=== PATIENT | male | born 2000 | race Asian ===

== ENCOUNTER 2021-02-08 11:04 | Observation (INO) ==
[2021-02-08 12:13] LABS: Basophils # (auto) 0.01 K/uL (0-0.2); Basophils % (auto) 0.1 %; Eosinophils # (auto) 0.02 K/uL (0-0.5); Eosinophils % (auto) 0.2 %; Hematocrit (blood only) 45.6 % (42-52); Immature Granulocytes # (auto) 0.02 K/uL (0.00-0.02); Immature Granulocytes % (auto) 0.2 %; Lymphocytes # (auto) 1.55 K/uL (1.2-3.4); Lymphocytes % (auto) 13.9 %; Mean Corpuscular Hemoglobin 30.2 pg (25-34); Mean Corpuscular Hgb Conc 35.1 g/dL (32-36); Mean Corpuscular Volume 86.2 fL (80-100); Mean Platelet Volume 10.7 fL (7.4-10.4); Monocytes # (auto) 0.59 K/uL (0.11-0.59); Monocytes % (auto) 5.3 %; Neutrophils # (auto) 8.97 K/uL (1.4-6.5); Neutrophils % (auto) 80.3 %; Platelet Count 197 K/uL (130-400); RDW Coefficient of Variation 12.3 % (11.5-14.5); RDW Standard Deviation 38.8 fL (36.4-46.3); Red Blood Count 5.29 M/uL (4.7-6.1); White Blood Count 11.16 K/uL (4.8-10.8)
[2021-02-08 12:23] LABS: INR 1.1 (0.9-1.1); Partial Thromboplastin Ratio 1.3; Partial Thromboplastin Time 33.5 Seconds (21.0-31.0); Prothrombin Time 11.2 Seconds (9.0-12.0)
[2021-02-08 12:33] LABS: BUN Creatinine Ratio 13.6 (10-20); Calcium 9.2 mg/dl (8.5-10.1); Creatinine Clr Calc Pharmacy 133.8 ml/min; Est GFR (African American) 132.1 ml/min; Potassium 4.1 mmol/L (3.5-5.1)
--- NOTE | 2021-02-08 13:12 | Emergency Department Note ---
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 Patient reports has been having rectal pain for the past 6 months. He reports he felt a bump by his rectum 6 months ago and is gotten progressively bigger and more painful. He states he went to [facility] and they referred him here because they thought he had a perirectal abscess. Patient denies any fevers. Denies any drainage. He denies any anal sex. Home Medications Medication Instructions Recorded Confirmed Type ascorbic acid (vitamin C) 1,000 mg 1,000 mg PO HS 02/08/21 02/08/21 History tablet (Vitamin C) Allergies Allergy/AdvReac Type Severity Reaction Status Date / Time No Known Allergies Allergy Unverified 02/08/21 13:33 Past Med/Surg History Medical History No pertinent family history No pertinent past medical history Surgical History No pertinent past surgical history Social History Smoking Status: Never smoker Feels Safe at Home: Yes Review of Systems A total of 10 systems reviewed and were otherwise negative Physical Exam Vital Signs Vital Signs - 24 hr 02/08/21 11:08 02/08/21 15:04 02/08/21 16:32 Temperature 36.7 C Temperature Source Temporal Artery Scan Pulse Rate 110 H Pulse Rate [Apical] Pulse Rate [Finger] 106 H Pulse Rhythm [Apical] Respiratory Rate 18 18 18 Respiratory Effort / Characteristics Respiratory Depth Normal Respiratory Pattern Blood Pressure 112/64 Blood Pressure [Left Arm] 103/54 L Blood Pressure Mean 80 Blood Pressure Mean [Left Arm] 70 Blood Pressure Position [Left Arm] Pulse Oximetry 97 98 Oxygen Delivery Method Room Air Room Air Oxygen Flow Rate Sepsis Recent Fever Within 48 Hours No Sepsis New/Unexplained Change in Mental Status No Sepsis Action Taken by Nursing No Action Required 02/08/21 17:22 02/08/21 17:23 02/08/21 18:21 Temperature 37.3 C 36.4 C L Temperature Source Oral Temporal Artery Scan Pulse Rate Pulse Rate [Apical] 84 Pulse Rate [Finger] 106 H Pulse Rhythm [Apical] Regular Respiratory Rate 18 16 Respiratory Effort / Characteristics Non-Labored Spontaneous Non-Labored Respiratory Depth Normal Normal Respiratory Pattern Regular Regular Blood Pressure Blood Pressure [Left Arm] 103/54 L 99/52 L Blood Pressure Mean Blood Pressure Mean [Left Arm] 70 67 Blood Pressure Position [Left Arm] Lying Lying Pulse Oximetry 98 100 Oxygen Delivery Method Room Air Room Air Oxymask Oxygen Flow Rate 6 Sepsis Recent Fever Within 48 Hours Sepsis New/Unexplained Change in Mental Status Sepsis Action Taken by Nursing 02/08/21 18:30 02/08/21 18:40 02/08/21 18:50 Temperature 36.5 C Temperature Source Temporal Artery Scan Pulse Rate Pulse Rate [Apical] 101 H 92 H 89 Pulse Rate [Finger] Pulse Rhythm [Apical] Regular Regular Regular Respiratory Rate 16 16 16 Respiratory Effort / Characteristics Non-Labored Non-Labored Non-Labored Respiratory Depth Normal Normal Normal Respiratory Pattern Regular Regular Regular Blood Pressure Blood Pressure [Left Arm] 116/57 L 124/60 118/58 L Blood Pressure Mean Blood Pressure Mean [Left Arm] 76 81 78 Blood Pressure Position [Left Arm] Lying Lying Lying Pulse Oximetry 100 100 100 Oxygen Delivery Method Oxymask Room Air Room Air Oxygen Flow Rate 6 Sepsis Recent Fever Within 48 Hours Sepsis New/Unexplained Change in Mental Status Sepsis Action Taken by Nursing 02/08/21 19:00 02/08/21 19:10 Temperature Temperature Source Pulse Rate Pulse Rate [Apical] 86 85 Pulse Rate [Finger] Pulse Rhythm [Apical] Regular Regular Respiratory Rate 16 16 Respiratory Effort / Characteristics Non-Labored Non-Labored Respiratory Depth Normal Normal Respiratory Pattern Regular Regular Blood Pressure Blood Pressure [Left Arm] 108/55 L 107/53 L Blood Pressure Mean Blood Pressure Mean [Left Arm] 72 71 Blood Pressure Position [Left Arm] Lying Lying Pulse Oximetry 97 97 Oxygen Delivery Method Room Air Room Air Oxygen Flow Rate Sepsis Recent Fever Within 48 Hours Sepsis New/Unexplained Change in Mental Status Sepsis Action Taken by Nursing Physical Exam GENERAL: He is oriented to person, place, and time. He appears well-developed and well-nourished. He does not appear distressed. HENT: Exam performed. - Head: Normocephalic and atraumatic. - Right Ear: External ear normal. No mastoid tenderness. - Left Ear: External ear normal. No mastoid tenderness. - Mouth/Throat: The oropharynx is clear and moist. No trismus in the jaw. No dental abscesses or uvula swelling. No oropharyngeal exudate or tonsillar abscesses. EYES: Conjunctivae and EOM are normal. Pupils are equal, round, and reactive to light. Right eye exhibits no discharge. Left eye exhibits no discharge. No scleral icterus. NECK: Normal range of motion. Neck supple. No JVD present. No spinous process tenderness present. No carotid bruit present. No rigidity. No tracheal deviation and normal range of motion present. No Brudzinski's sign and no Kernig's sign noted. CV: Normal rate, regular rhythm, normal heart sounds and intact distal pulses. There is no peripheral edema. Palpable radial pulses bue. PULM/CHEST: Effort normal and breath sounds normal. No respiratory distress. No stridor. He has no wheezes. He has no rales. - Chest Wall: He exhibits no tenderness. ABD: The abdomen is soft. Bowel sounds are normal. He has no distension. No mass is present. There is no tenderness. There is no rebound, no guarding, no Lancaster's sign and no tenderness at McBurney's point. Rovsig negative. Rectal: No obvious perirectal or perianal abscess. No hemorrhoids. MUSC/SKEL: Normal range of motion. There is no peripheral edema, tenderness or deformity. LYMPH: No cervical adenopathy. NEURO: He is alert and oriented to person, place, and time. He has normal strength. No cranial nerve deficit or sensory deficit. Coordination and gait normal. GCS eye subscore is 4. GCS verbal subscore is 5. GCS motor subscore is 6. Cerebellar tests wnl. SKIN: Skin is warm and dry. He is not diaphoretic. PSYCH: He has a normal mood and affect. Behavior is normal. Judgment and thought content normal. Course Course 1125: The patient was evaluated in room C2. A complete history and physical exam was performed Cardiac monitoring: An order was placed for continuous cardiac monitoring. The monitor shows a rate of 100 with sinus rhythm 1430: Vital signs stable. Labs within normal limits. CT imaging does show perirectal abscess. Reviewed the scans with Dr. Flores general surgery and Irma renee PA-C and they recommend admission so they could do drainage in the OR. Administered Medications Discontinued Medications Cefazolin Sodium (Cefazolin 2,000 Mg/15 Ml Iv Push) Confirm Administered Dose 2,000 mg IV .STK-MED ONE Stop: 02/08/21 17:38 Last Admin: 02/08/21 17:41 Dose: 2,000 mg Documented by: [id number] Ioversol (Optiray 320 100ml) 97 ml IV ONCE ONE Stop: 02/08/21 14:02 Last Admin: 02/08/21 14:01 Dose: 97 ml Documented by: [id number] Lidocaine/Epinephrine (Lidocaine/Epinephrine 1% 20 Ml Vial) Confirm Administered Dose 20 ml .ROUTE .STK-MED ONE Stop: 02/08/21 17:03 Last Admin: 02/08/21 18:04 Dose: 20 ml Documented by: [id number] Medical Decision Making Laboratory Data Result diagrams: 02/08/21 Unknown 02/08/21 Unknown Lab Results 02/08/21 02/08/21 02/08/21 Range/Units Unknown Unknown Unknown WBC 11.16 H (4.8-10.8) K/uL RBC 5.29 (4.7-6.1) M/uL Hgb 16.0 (14.0-18.0) g/dL Hct 45.6 (42-52) % MCV 86.2 (80-100) fL MCH 30.2 (25-34) pg MCHC 35.1 (32-36) g/dL RDW Std Deviation 38.8 (36.4-46.3) fL RDW Coeff of [place] 12.3 (11.5-14.5) % Plt Count 197 (130-400) K/uL MPV 10.7 H (7.4-10.4) fL Immature Gran % (Auto) 0.2 % Neut % (Auto) 80.3 % Lymph % (Auto) 13.9 % [place] % (Auto) 5.3 % Eos % (Auto) 0.2 % Baso % (Auto) 0.1 % Neut # (Auto) 8.97 H (1.4-6.5) K/uL Lymph # (Auto) 1.55 (1.2-3.4) K/uL [place] # (Auto) 0.59 (0.11-0.59) K/uL Eos # (Auto) 0.02 (0-0.5) K/uL Baso # (Auto) 0.01 (0-0.2) K/uL Immature Gran # (Auto) 0.02 (0.00-0.02) K/uL PT 11.2 (9.0-12.0) Seconds INR 1.1 (0.9-1.1) APTT 33.5 H (21.0-31.0) Seconds PTT Ratio 1.3 Sodium 138 (136-145) mmol/L Potassium 4.1 (3.5-5.1) mmol/L Chloride 106 (98-107) mmol/L Carbon Dioxide 27 (21-32) mmol/L Anion Gap 5.0 (3-11) BUN 13 (7-18) mg/dl Creatinine 0.95 (0.6-1.4) mg/dl Est Cr Clr Drug Dosing 133.8 ml/min Est GFR ( Amer) 132.1 ml/min Est GFR (Non-Af Amer) 114.0 ml/min BUN/Creatinine Ratio 13.6 (10-20) Glucose 99 (70-99) mg/dl Calcium 9.2 (8.5-10.1) mg/dl COVID-19 Eval Order SARS-CoV-2 (PCR) (Negative) 02/08/21 02/08/21 Range/Units Unknown Unknown WBC (4.8-10.8) K/uL RBC (4.7-6.1) M/uL Hgb (14.0-18.0) g/dL Hct (42-52) % MCV (80-100) fL MCH (25-34) pg MCHC (32-36) g/dL RDW Std Deviation (36.4-46.3) fL RDW Coeff of [place] (11.5-14.5) % Plt Count (130-400) K/uL MPV (7.4-10.4) fL Immature Gran % (Auto) % Neut % (Auto) % Lymph % (Auto) % [place] % (Auto) % Eos % (Auto) % Baso % (Auto) % Neut # (Auto) (1.4-6.5) K/uL Lymph # (Auto) (1.2-3.4) K/uL [place] # (Auto) (0.11-0.59) K/uL Eos # (Auto) (0-0.5) K/uL Baso # (Auto) (0-0.2) K/uL Immature Gran # (Auto) (0.00-0.02) K/uL PT (9.0-12.0) Seconds INR (0.9-1.1) APTT (21.0-31.0) Seconds PTT Ratio Sodium (136-145) mmol/L Potassium (3.5-5.1) mmol/L Chloride (98-107) mmol/L Carbon Dioxide (21-32) mmol/L Anion Gap (3-11) BUN (7-18) mg/dl Creatinine (0.6-1.4) mg/dl Est Cr Clr Drug Dosing ml/min Est GFR ( Amer) ml/min Est GFR (Non-Af Amer) ml/min BUN/Creatinine Ratio (10-20) Glucose (70-99) mg/dl Calcium (8.5-10.1) mg/dl COVID-19 Eval Order Covid19 at [facility] SARS-CoV-2 (PCR) NEGATIVE (Negative) Imaging Data Radiologist's Impression: Pelvis CT 02/08/21 11:35 CT pelvis w/IV con only HISTORY: Perirectal pain. Perirectal abscess. TECHNIQUE: Multiaxial CT images of the pelvis are performed following the intravenous administration of 97 cc of Optiray 320. COMPARISON STUDY: None. FINDINGS: Best seen on axial image 241 there is a 4.0 x 2.9 cm thick-walled left perirectal abscess with adjacent fat stranding and skin thickening within the left perineum/gluteal soft tissues. This originates from approximately the 2:00 location of the rectum. No evidence for supralevator extension. There is no pelvic free fluid. The bladder is unremarkable. Mild left inguinal lymphadenopathy which is likely reactive. The visualized loops of bowel show no wall thickening or obstruction. Normal appendix. No suspicious lytic or blastic osseous lesions. IMPRESSION: A 4.0 x 2.9 cm left perirectal abscess as described above. ACT 112: Negative or not required by law. Electronically signed by: Derrell Horner M.D. 02/08/2021 2:09 PM MDM Narrative Vital signs stable. Labs within normal limits. CT imaging does show perirectal abscess. Reviewed the scans with Dr. Flores general surgery and Irma renee PA-C and they recommend admission so they could do drainage in the OR. Impression & Plan Perirectal abscess Discharge Plan Visit Data Chief Complaint: Rectal Pain Stated Complaint: NESTOR-RECTAL ABSCESS,RECTAL PAIN,REF BY DOC ED Provider: Bran Henson Discharge Problem: Perirectal abscess Patient Disposition: Admitted As Inpatient Discharge Instructions Interventions: ED Discharge Assessment Last Done: 02/08/21 17:23
[2021-02-08] MEDS ORDERED: OPTIRAY 320 100ml IV ONE (14:01)
--- NOTE | 2021-02-08 14:11 | CT Scan Report ---
CT pelvis w/IV con only HISTORY: Perirectal pain. Perirectal abscess. TECHNIQUE: Multiaxial CT images of the pelvis are performed following the intravenous administration of 97 cc of Optiray 320. COMPARISON STUDY: None. FINDINGS: Best seen on axial image 241 there is a 4.0 x 2.9 cm thick-walled left perirectal abscess w ith adjacent fat stranding and skin thickening within the left perineum/gluteal soft tissues. This or iginates from approximately the 2:00 location of the rectum. No evidence for supralevator extension. There is no pelvic free fluid. The bladder is unremarkable. Mild left inguinal lymphadenopathy which is likely reactive. The visualized loops of bowel show no wall thickening or obstruction. Normal appe ndix. No suspicious lytic or blastic osseous lesions. IMPRESSION: A 4.0 x 2.9 cm left perirectal abscess as described above. ACT 112: Negative or not required by law. Electronically signed by: Derrell Horner M.D. 02/08/2021 2:09 PM
--- NOTE | 2021-02-08 15:04 | History & Physical Report ---
Date of Service February 08, 2021 Assessment & Plan (1) Perirectal abscess: Plan: 21 year-old male with 6 month history of rectal pain with increasing pain in last 48 hours, afebrile, no rectal bleeding or bowel changes. Pelvis CT with IV contrast showing left perirectal abscess. Plan: Dr. Flores discussed CT scan findings with patient showing perirectal abscess and need for incision and drainage. Discussed procedure and risks and informed consent obtained keep npo preop covid test preop cefoxitin will be ordered will stay overnight Dr. Flores has seen and examined pt, agrees with above. 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 States he noticed some rectal pain about 6 months ago. [place] to be like a small bump. States he noticed increasing pain in the last 48 hours. No changes in bowel habits, no fever, or chills. Denies of any rectal bleeding. Has not noticed any redness or swelling of the buttocks. Never had anything similar in past. Allergies Allergy/AdvReac Type Severity Reaction Status Date / Time No Known Allergies Allergy Unverified 02/08/21 13:33 Home Medications Medication Instructions Recorded Confirmed Type ascorbic acid (vitamin C) 1,000 mg 1,000 mg PO HS 02/08/21 02/08/21 History tablet (Vitamin C) Past Med/Surg History Medical History No pertinent family history No pertinent past medical history Surgical History No pertinent past surgical history Social History Smoking Status: Never smoker Feels Safe at Home: Yes Physical Exam Constitutional: WD/WN, vitals as above no acute distress and not ill a ppearing Respiratory: normal respiratory effort; no respiratory distress, no labored breathing and no retractions Gastrointestinal (Abdomen): External rectal examination: Significant induration of the left perirectal 3 o'clock region. no overlying erythema. given patient discomfort, internal rectal examination not performed. Skin: no rashes, warm and dry Psychiatric: Orientation: alert, oriented x 3 and cooperative Affect: + anxious affect Results & Data Results & Data (MN) Vital Signs (Past 12 Hours) Vital Signs Temp Pulse Resp BP Pulse Ox 02/08/21 11:08 36.7 C 110 H 18 112/64 97 Laboratory Results 02/08/21 02/08/21 02/08/21 Range/Units Unknown Unknown Unknown WBC 11.16 H (4.8-10.8) K/uL RBC 5.29 (4.7-6.1) M/uL Hgb 16.0 (14.0-18.0) g/dL Hct 45.6 (42-52) % MCV 86.2 (80-100) fL MCH 30.2 (25-34) pg MCHC 35.1 (32-36) g/dL RDW Std Deviation 38.8 (36.4-46.3) fL RDW Coeff of [place] 12.3 (11.5-14.5) % Plt Count 197 (130-400) K/uL MPV 10.7 H (7.4-10.4) fL Immature Gran % (Auto) 0.2 % Neut % (Auto) 80.3 % Lymph % (Auto) 13.9 % [place] % (Auto) 5.3 % Eos % (Auto) 0.2 % Baso % (Auto) 0.1 % Neut # (Auto) 8.97 H (1.4-6.5) K/uL Lymph # (Auto) 1.55 (1.2-3.4) K/uL [place] # (Auto) 0.59 (0.11-0.59) K/uL Eos # (Auto) 0.02 (0-0.5) K/uL Baso # (Auto) 0.01 (0-0.2) K/uL Immature Gran # (Auto) 0.02 (0.00-0.02) K/uL PT 11.2 (9.0-12.0) Seconds INR 1.1 (0.9-1.1) APTT 33.5 H (21.0-31.0) Seconds PTT Ratio 1.3 Sodium 138 (136-145) mmol/L Potassium 4.1 (3.5-5.1) mmol/L Chloride 106 (98-107) mmol/L Carbon Dioxide 27 (21-32) mmol/L Anion Gap 5.0 (3-11) BUN 13 (7-18) mg/dl Creatinine 0.95 (0.6-1.4) mg/dl Est Cr Clr Drug Dosing 133.8 ml/min Est GFR ( Amer) 132.1 ml/min Est GFR (Non-Af Amer) 114.0 ml/min BUN/Creatinine Ratio 13.6 (10-20) Glucose 99 (70-99) mg/dl Calcium 9.2 (8.5-10.1) mg/dl Diagnostic Findings CT pelvis w/IV con only HISTORY: Perirectal pain. Perirectal abscess. TECHNIQUE: Multiaxial CT images of the pelvis are performed following the intravenous administration of 97 cc of Optiray 320. COMPARISON STUDY: None. FINDINGS: Best seen on axial image 241 there is a 4.0 x 2.9 cm thick-walled left perirectal abscess with adjacent fat stranding and skin thickening within the left perineum/gluteal soft tissues. This originates from approximately the 2:00 location of the rectum. No evidence for supralevator extension. There is no pelvic free fluid. The bladder is unremarkable. Mild left inguinal lymphadenopathy which is likely reactive. The visualized loops of bowel show no wall thickening or obstruction. Normal appendix. No suspicious lytic or blastic osseous lesions. IMPRESSION: A 4.0 x 2.9 cm left perirectal abscess as described above.
[2021-02-08] MEDS ORDERED: fentaNYL citrate 100 MCG/2 ML VIAL ONE (15:37)
[2021-02-08] MEDS ORDERED: LIDOCAINE 2% 2 ML VIAL/AMP(20MG/ML) INFIL ONE (15:37)
[2021-02-08] MEDS ORDERED: PROPOFOL IV EMULSION 10 MG/ML 20 ML VIAL IV ONE (15:37)
[2021-02-08] MEDS ORDERED: ONDANSETRON INJ 2 MG/ML 2 ML VIAL ONE (15:37)
[2021-02-08] MEDS ORDERED: MIDAZOLAM HCL 1 MG/ML 2ML VIAL ONE (15:37)
[2021-02-08] MEDS ORDERED: DEXAMETHASONE SOD INJ 4 MG/ML VIAL ONE (15:37)
[2021-02-08] MEDS ORDERED: LIDOCAINE/EPINEPHRINE 1% 20 ML VIAL ONE (17:02)
[2021-02-08] MEDS ORDERED: ceFAZolin 2,000 MG/15 ML IV PUSH IV ONE (17:37)
[2021-02-08] MEDS ORDERED: HYDROmorphone INJ 2 MG/ML SYR/VIAL IV PRN (17:39)
[2021-02-08] MEDS ORDERED: ATROPINE SULFATE 0.1 MG/ML 10ML SYR IV PRN (17:39)
[2021-02-08] MEDS ORDERED: ONDANSETRON INJ 2 MG/ML 2 ML VIAL IV PRN ×2 (17:39→20:45)
[2021-02-08] MEDS ORDERED: ePHEDrine sulfate 50 MG/ML AMP IV PRN (17:39)
[2021-02-08] MEDS ORDERED: fentaNYL citrate 100 MCG/2 ML VIAL IV PRN (17:39)
--- NOTE | 2021-02-08 17:39 | Anesthesiology Consultation ---
Date of Service February 08, 2021 Assessment & Plan ASA ASA1 Proposed Anesthesia Anesthesia Type: General Risk / Benefits Reviewed With: PT / POA / Parent / Guardian, Accepts Plan and Informed Consent Obtained History Surgery Operation Date: 02/08/21 12:45 Proposed Procedures p Incision & Drainage Perirectal Abscess - Aurelio Flores MD Height/Weight Height: 6 ft 1.23 in Weight: 76.9 kg Allergies Allergy/AdvReac Type Severity Reaction Status Date / Time No Known Allergies Allergy Unverified 02/08/21 13:33 Medications Home Medications Medication Instructions Recorded Confirmed Last Taken ascorbic acid (vitamin C) 1,000 mg 1,000 mg PO HS 02/08/21 02/08/21 02/07/21 tablet (Vitamin C) NPO Date Last Intake of Fluids: 02/07/21 Time Last Intake of Fluids: 21:00 Date Last Intake of Solids: 02/07/21 Time Last Intake of Solids: 21:00 Past Medical History Medical History No pertinent family history No pertinent past medical history Exercise / Class Metabolic Activity II 4-5 Yardwork/Stairs/Walk up hill Past Surgical History Surgical History No pertinent past surgical history Past Anesthesia History No Hx of Anesthesia Complications and No Family Hx of Anesthesia Complications History of PONV No Hx of PONV and No Hx of Motion Sickness Social History Smoking Status: Never smoker Review of Systems denies fever/cough/ colds/ chest pain/ SOB/ EAGLE denies EAGLE Physical Exam Vital Signs Last Vital Signs Temp 37.3 C 02/08/21 17:22 Pulse 106 H 02/08/21 17:22 Resp 18 02/08/21 17:22 BP 103/54 L 02/08/21 17:22 Pulse Ox 98 02/08/21 17:22 ENMT Mouth: no TMJ abnormality and no dentition abnormality Thyromental Distance: > or= 3.5 Finger Breadths Mallampati Class: II Neck neck extension not limited Respiratory normal respiratory effort; no respiratory distress Auscultation: lungs clear to auscultation bilaterally Cardiovascular Rate/Rhythm: regular rate and regular rhythm Neurologic moves all extremities Psychiatric Orientation: alert and oriented x 3 Testing Laboratory Results 02/08/21 Unknown 02/08/21 Unknown PT 11.2 Seconds (9.0-12.0) 02/08/21 Unknown INR 1.1 (0.9-1.1) 02/08/21 Unknown APTT 33.5 Seconds (21.0-31.0) H 02/08/21 Unknown
--- NOTE | 2021-02-08 18:08 | Post Operative Brief Note ---
Immediate Post Op Note v1 Date of Surgery February 08, 2021 Pre & Post Diagnosis Operation Date: 02/08/21 12:45 Pre-Op Diagnosis: Perirectal Abcess Post-Op Diagnosis: Perirectal Abcess I identified the patient and participated in the time-out.: Yes Procedure Operation Date: 02/08/21 12:45 Actual Procedures p Incision & Drainage Perirectal Abscess - Aurelio Flores MD Surgeon Aurelio Flores MD Poultry Farmer Meat NONE Estimated Blood Loss 10 Findings Consistent with Post-Op Diagnosis
--- NOTE | 2021-02-08 18:42 | Anesthesiology Progress Note ---
Date of Service February 08, 2021 Anesthesia Post Procedure Vital Signs Vital Signs: Temp Pulse Pulse Pulse Resp BP BP 02/08/21 18:40 92 H 16 124/60 02/08/21 18:30 101 H 16 116/57 L 02/08/21 18:21 36.4 C L 84 16 99/52 L 02/08/21 17:22 37.3 C 106 H 18 103/54 L 02/08/21 16:32 106 H 18 103/54 L 02/08/21 15:04 18 02/08/21 11:08 36.7 C 110 H 18 112/64 Pulse Ox 02/08/21 18:40 100 02/08/21 18:30 100 02/08/21 18:21 100 02/08/21 17:22 98 02/08/21 16:32 98 02/08/21 15:04 02/08/21 11:08 97 Transfer of Care Handoff Completed per policy Notes Mental Status: alert / awake / arousable and participated in evaluation Patient Amnestic to Procedure: Yes Nausea / Vomiting: adequately controlled Pain: adequately controlled Airway Patency, RR, SpO2: stable & adequate BP & HR: stable & adequate Hydration State: stable & adequate Anesthetic Complications: no major complications apparent and Pt Satisfied with anesthetic care
[2021-02-08] MEDS ORDERED: oxyCODONE/ACETAMINOPHEN 5mg/325mg TAB PO PRN (20:45)
[2021-02-08] MEDS ORDERED: IBUPROFEN 600 MG TAB PO PRN (20:45)
[2021-02-09] MEDS: ceFAZolin 2000MG 2,000 MG/15 ML SYR IV SCH ×2 (00:09→10:15)
[2021-02-09] MEDS ORDERED: DOCUSATE SODIUM 100 MG CAP PO SCH (09:00)
--- NOTE | 2021-02-09 10:47 | Discharge Summary ---
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 States he noticed some rectal pain about 6 months ago. [place] to be like a small bump. States he noticed increasing pain in the last 48 hours. No changes in bowel habits, no fever, or chills. Denies of any rectal bleeding. Has not noticed any redness or swelling of the buttocks. Never had anything similar in past. Principal Diagnosis Perirectal abscess Discharge Exam Constitutional WD/WN, vitals as above no acute distress and not ill appearing Respiratory normal respiratory effort; no respiratory distress, no labored breathing and no retractions Gastrointestinal (Abdomen) External perirectal exam: There is bloody drainage on dressing. Moderate tenderness at incision site, Packing removed. No further fluctuance. Skin no rashes, warm and dry Psychiatric A+Ox3, euthymic affect Discharge Data Allergies Allergy/AdvReac Type Severity Reaction Status Date / Time No Known Allergies Allergy Unverified 02/08/21 13:33 Consultations 02/08/21 14:28 ED Decision to Admit Stat Procedures Performed Operation Date: 02/08/21 12:45 Actual Procedures p Incision & Drainage Perirectal Abscess - Aurelio Flores MD Ordered Studies 02/08/21 11:35 CT pelvis w/IV con only Stat Hospital Course (1) Perirectal abscess: Patient was taken to operating room from emergency department for incision and drainage of perirectal abscess. Patient was found to have large abscess with significant purulence. Packing was placed and patient transferred to PACU then to medical/surgical floor for postop care. POD # 1 afebrile, vitals stable, pain controlled, eating without difficulty. Packing was removed and dressing reapplied. Patient was discharged home on POD # 1 in stable condition. Close follow-up with Dr. Flores scheduled on Sunday02/11/21 at 9:00 am. Total Time Total Time Spent Total Time Spent (In Minutes): 30 Total Time Includes: Examination of the Patient, Discharge Planning and Medication Reconciliation Discharge Plan Discharge Items Patient Disposition: Home - Self-Care Reason For Visit: PERIRECTAL ABSCESS Discharge Diagnosis: Perirectal abscess Activity: Per Instructions section Non-emergency contact: Surgeon Call non-emergency contact if: your pain is not controlled, your pain is worsening, your pain is concerning for you, you have a fever, your temperature is above 101, your wound has increased redness, your wound has increased drainage and your wound pain has increased Follow-up/Referrals: Aurelio Flores MD [Physician] - 02/11/21 9:00 am PCPNELIDA [Physician] - Diet: Regular Addtl Attending Provider Instructions: ACTIVITY RECOMMENDATIONS: * No heavy lifting for 1 week. MEDICATIONS: Resume previous medications unless instructed otherwise by your surgeon. * Percocet 5/325 mg 1 every 4 hours, as needed for pain * Stool softener (Colace 100 mg) 2 times per day * Extra Strength Tylenol 500 - 1000 mg every 4 hours, as needed for pain * Ibuprofen 600 mg every 6 hours, as needed for pain SPECIAL CARE INSTRUCTIONS: * Change dressings as needed and daily to keep clean and dry * Shower 2 times per day and after each bowel movement. * Call the surgeon's office with any questions or concerns - (ex. temperature higher than 101 degrees F, excessive bleeding or pain). FOLLOW UP VISIT: Follow-up is scheduled for Sunday02/11/21 at 9:00 am at [facility] Office number . Pending Studies at Discharge: Yes (wound culture) Stand-Alone Forms: My [facility], Work/School Release, Smoking Cessation Medications and DC Order Prescriptions: New amoxicillin-pot clavulanate 875-125 mg tablet 1 tab PO BID Qty: 20 RF: 0 oxycodone-acetaminophen [Percocet] 5-325 mg tablet 1 tab PO Q4H PRN (Reason: pain) Qty: 18 RF: 0 Continued ascorbic acid (vitamin C) [Vitamin C] 1,000 mg Tablet 1,000 mg PO HS RF: 0 Discharge Orders: Discharge Order (Routine); Ordered 02/09/21 Ordered By: Irma Ford Admission Data Admit Date/Time: 02/08/21 18:11 Attending Provider: Aurelio Flores Admit Provider: Aurelio Flores Primary Care Provider: Kitzmiller,[facility] Other Providers: Aurelio Flores
== END 2021-02-09 12:20 | disposition home or self-care (01) ==
LOC: ED 11:04 → 3W 17:11 → ASU 17:11

== ENCOUNTER 2022-07-28 10:19 | Observation (INO) ==
--- NOTE | 2022-07-28 11:07 | Emergency Department Note ---
Impression & Plan Pneumothorax, left ADMIT ED Provider Note HPI: The patient is a 22-year-old male who presents emergency department with a chief complaint of left-sided chest discomfort. Patient states 10 days ago he felt some acute left sided pain when he was coughing. Patient states he had an x-ray done today [facility] that showed evidence of a pneumothorax and therefore was referred to the ED for further assessment. On my initial evaluation here in the ED the patient is resting comfortably in bed, he is not tachycardic, oxygen saturation is 96% on room air, respirations are nonlabored. Patient is otherwise in no acute distress. ROS: - Per HPI *Outpatient medications and allergy history reviewed. *Pertinent external medical records reviewed. 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 Thora vent chest tube/catheter placement: -Verbal consent was obtained from the patient -Area slightly to the anterior mid axillary line at the fourth the fifth intercostal space was sterilely prepped with alcohol -Site was draped with sterile towels -Patient was given topical anesthesia with 10 cc of 1% lidocaine with epinephrine -Initial incision point was made with #11 blade -Needle with overlying catheter was advanced into the incision spot, needle with overlying catheter was gently advanced until lack of resistance, red signal diaphragm moved upward -Needle/trocar was removed while catheter was advanced -Thora vent was adhered to the chest wall -Patient remained hemodynamically stable without any issues during the procedure -Follow-up chest x-ray shows appropriate placement of catheter with mild improvement in pneumothorax Medical Decision Making: The patient is a 22-year-old male who presents emergency department with pneumothorax that was noted on outpatient x-ray imaging this morning [facility]. Patient is hemodynamically stable on arrival, repeat chest x- ray does show evidence of a large left-sided pneumothorax with possible tension component. Patient's vital signs are not suggestive of a tension pneumothorax process at this time. Patient was placed on nasal cannula oxygen. Upon review of the patient's previous imaging, he did have a pneumothorax on imaging from August 2021. I did inform the patient of this finding. He states he was unaware of this finding from August. Patient's imaging today was discussed with on-call radiology, Dr. Stockton, following finding of large pneumothorax. Finding today is of unknown chronicity although it does appear worse/larger than imaging from August 2021. Pt states he has not had any issues in the past year with any shortness of breath or chest pain. Patient states his issues just started again acutely 10 days ago after an episode of coughing. Fortunately he did remain hemodynamically stable and he is hemodynamically stable here in the ED on arrival. I suspect he had some worsening of possible chronic pneumothorax versus possibly a new acute pneumothorax when he had his coughing episode 10 days ago. IV was established and lab work obtained, patient was maintained on cardiac matias tor, I did discuss the case with on-call pulmonology, Dr. Flores, he recommended chest tube placement or Thora vent placement without suctioning given that the chronicity of this pneumothorax is unknown and to prevent possibility of reexpansion pulmonary edema acutely. I discussed this with the patient, he is in agreement for Thora vent placement. Please see procedure note for details. Thora vent was placed and remained in placed and was not put to suction or seal. Patient tolerated the procedure well and remained hemodynamically stable. Follow-up chest x-ray imaging shows Thora vent in place with some improvement in pneumothorax and in previously noted tension component. I did discuss this with Dr. Flores again, he is in agreement for consultation and will evaluate the patient at the bedside. Patient's lab work is otherwise largely unremarkable. Given the procedure in addition to unknown chronicity of the pneumothorax I did feel it appropriate to admit the patient to the hospita list service for overnight observation and pulmonary consultation. Patient is in agreement. Case was discussed with the on-call hospitalist service for [facility] provider group, discussed with Dr. Morrison and the patient was placed for admission in stable condition Consultants: -On-call pulmonology, Dr. Flores -Hospitalist service, Dr. Morrison -Radiology, Dr. Stockton Disposition discussion held by myself with: Patient * CRITICAL CARE TIME: (40) minutes -Time spent at the bedside independent of procedures in management of pneumothorax with possible tension component on x-ray imaging ultimately requiring chest tube placement, discussion with multiple physicians, interpretation of diagnostic imaging and discussion with on-call radiology, on- call pulmonology, and on-call hospitalist service for arrangement of admission. Diagnosis: 1. 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 Beliefs That Will Affect Care: None Current Living Situation: Alone Feels Safe at Home: Yes Assistive Devices: None Allergies Allergies Allergy/AdvReac Type Severity Reaction Status Date / Time pollen extracts Allergy Intermediate Swelling Unverified 07/28/22 16:15 of the Eye Home Meds Home Medications Medication Instructions Recorded Confirmed No Known Home Medications 07/28/22 07/28/22 Results & Data (ED) Vital Signs Vital Signs - 24 hr 07/28/22 10:21 07/28/22 10:52 07/28/22 10:53 Temperature 36.5 C Temperature Source Temporal Artery Scan Pulse Rate 100 H Pulse Rate [Finger] 94 H Pulse Rate from SpO2 Sensor Respiratory Rate 16 18 Blood Pressure 119/68 Blood Pressure [Right Arm] 137/75 Blood Pressure Mean 85 Blood Pressure Mean [Right Arm] 95 Pulse Oximetry 98 97 100 Oxygen Delivery Method Room Air Room Air Non-rebreather Oxygen Flow Rate 15 Sepsis Recent Fever Within 48 Hours No Sepsis New/Unexplained Change in Mental Status No Sepsis Action Taken by Nursing No Action Required 07/28/22 12:20 07/28/22 10:53 07/28/22 11:00 Temperature Temperature Source Pulse Rate 74 104 H 91 H Pulse Rate [Finger] Pulse Rate from SpO2 Sensor 89 91 H Respiratory Rate 16 23 Blood Pressure Blood Pressure [Right Arm] Blood Pressure Mean Blood Pressure Mean [Right Arm] Pulse Oximetry 100 99 Oxygen Delivery Method Oxygen Flow Rate Sepsis Recent Fever Within 48 Hours Sepsis New/Unexplained Change in Mental Status Sepsis Action Taken by Nursing 07/28/22 11:01 07/28/22 11:01 07/28/22 11:10 Temperature Temperature Source Pulse Rate 92 H 89 Pulse Rate [Finger] Pulse Rate from SpO2 Sensor 89 89 Respiratory Rate 15 19 Blood Pressure 126/79 Blood Pressure [Right Arm] Blood Pressure Mean 94 Blood Pressure Mean [Right Arm] Pulse Oximetry 99 96 Oxygen Delivery Method Oxygen Flow Rate Sepsis Recent Fever Within 48 Hours Sepsis New/Unexplained Change in Mental Status Sepsis Action Taken by Nursing 07/28/22 11:19 07/28/22 11:28 07/28/22 11:29 Temperature Temperature Source Pulse Rate 85 Pulse Rate [Finger] Pulse Rate from SpO2 Sensor 86 80 Respiratory Rate 21 Blood Pressure 120/78 Blood Pressure [Right Arm] Blood Pressure Mean 92 Blood Pressure Mean [Right Arm] Pulse Oximetry 95 96 Oxygen Delivery Method Oxygen Flow Rate Sepsis Recent Fever Within 48 Hours Sepsis New/Unexplained Change in Mental Status Sepsis Action Taken by Nursing 07/28/22 11:30 07/28/22 11:30 07/28/22 11:40 Temperature Temperature Source Pulse Rate 83 69 Pulse Rate [Finger] Pulse Rate from SpO2 Sensor 82 68 Respiratory Rate 14 13 Blood Pressure 129/87 Blood Pressure [Right Arm] Blood Pressure Mean 101 Blood Pressure Mean [Right Arm] Pulse Oximetry 100 99 Oxygen Delivery Method Oxygen Flow Rate Sepsis Recent Fever Within 48 Hours Sepsis New/Unexplained Change in Mental Status Sepsis Action Taken by Nursing 07/28/22 11:50 07/28/22 12:11 07/28/22 12:20 Temperature Temperature Source Pulse Rate 92 H 90 84 Pulse Rate [Finger] Pulse Rate from SpO2 Sensor 89 80 Respiratory Rate 20 16 25 H Blood Pressure Blood Pressure [Right Arm] Blood Pressure Mean Blood Pressure Mean [Right Arm] Pulse Oximetry 98 99 Oxygen Delivery Method Oxygen Flow Rate Sepsis Recent Fever Within 48 Hours Sepsis New/Unexplained Change in Mental Status Sepsis Action Taken by Nursing 07/28/22 12:29 07/28/22 12:29 07/28/22 12:30 Temperature Temperature Source Pulse Rate 86 Pulse Rate [Finger] Pulse Rate from SpO2 Sensor Respiratory Rate 18 Blood Pressure 123/80 117/77 Blood Pressure [Right Arm] Blood Pressure Mean 94 90 Blood Pressure Mean [Right Arm] Pulse Oximetry Oxygen Delivery Method Oxygen Flow Rate Sepsis Recent Fever Within 48 Hours Sepsis New/Unexplained Change in Mental Status Sepsis Action Taken by Nursing 07/28/22 12:30 07/28/22 12:31 07/28/22 12:31 Temperature Temperature Source Pulse Rate 91 H 87 Pulse Rate [Finger] Pulse Rate from SpO2 Sensor 90 87 Respiratory Rate 17 19 Blood Pressure 128/77 Blood Pressure [Right Arm] Blood Pressure Mean 94 Blood Pressure Mean [Right Arm] Pulse Oximetry 100 97 Oxygen Delivery Method Oxygen Flow Rate Sepsis Recent Fever Within 48 Hours Sepsis New/Unexplained Change in Mental Status Sepsis Action Taken by Nursing 07/28/22 12:40 07/28/22 12:42 07/28/22 12:42 Temperature Temperature Source Pulse Rate 96 H 93 H Pulse Rate [Finger] Pulse Rate from SpO2 Sensor 97 H 92 H Respiratory Rate 18 27 H Blood Pressure 129/79 Blood Pressure [Right Arm] Blood Pressure Mean 95 Blood Pressure Mean [Right Arm] Pulse Oximetry 100 100 Oxygen Delivery Method Oxygen Flow Rate Sepsis Recent Fever Within 48 Hours Sepsis New/Unexplained Change in Mental Status Sepsis Action Taken by Nursing 07/28/22 12:45 07/28/22 12:45 07/28/22 12:50 Temperature Temperature Source Pulse Rate 98 H 86 Pulse Rate [Finger] Pulse Rate from SpO2 Sensor 95 H 85 Respiratory Rate 22 12 Blood Pressure 125/73 Blood Pressure [Right Arm] Blood Pressure Mean 90 Blood Pressure Mean [Right Arm] Pulse Oximetry 100 98 Oxygen Delivery Method Oxygen Flow Rate Sepsis Recent Fever Within 48 Hours Sepsis New/Unexplained Change in Mental Status Sepsis Action Taken by Nursing 07/28/22 13:00 07/28/22 13:00 07/28/22 13:10 Temperature Temperature Source Pulse Rate 96 H 79 Pulse Rate [Finger] Pulse Rate from SpO2 Sensor 98 H 76 Respiratory Rate 15 19 Blood Pressure 130/85 Blood Pressure [Right Arm] Blood Pressure Mean 100 Blood Pressure Mean [Right Arm] Pulse Oximetry 100 100 Oxygen Delivery Method Oxygen Flow Rate Sepsis Recent Fever Within 48 Hours Sepsis New/Unexplained Change in Mental Status Sepsis Action Taken by Nursing 07/28/22 13:15 07/28/22 13:15 07/28/22 13:20 Temperature Temperature Source Pulse Rate 90 89 Pulse Rate [Finger] Pulse Rate from SpO2 Sensor 91 H 89 Respiratory Rate 19 20 Blood Pressure 128/84 Blood Pressure [Right Arm] Blood Pressure Mean 98 Blood Pressure Mean [Right Arm] Pulse Oximetry 99 100 Oxygen Delivery Method Oxygen Flow Rate Sepsis Recent Fever Within 48 Hours Sepsis New/Unexplained Change in Mental Status Sepsis Action Taken by Nursing 07/28/22 13:30 07/28/22 13:30 07/28/22 13:40 Temperature Temperature Source Pulse Rate 86 80 Pulse Rate [Finger] Pulse Rate from SpO2 Sensor 86 87 Respiratory Rate 20 22 Blood Pressure 118/84 Blood Pressure [Right Arm] Blood Pressure Mean 95 Blood Pressure Mean [Right Arm] Pulse Oximetry 100 97 Oxygen Delivery Method Nasal Cannula Nasal Cannula Oxygen Flow Rate 2 2 Sepsis Recent Fever Within 48 Hours Sepsis New/Unexplained Change in Mental Status Sepsis Action Taken by Nursing 07/28/22 13:46 07/28/22 13:46 07/28/22 13:50 Temperature Temperature Source Pulse Rate 79 84 Pulse Rate [Finger] Pulse Rate from SpO2 Sensor 80 80 Respiratory Rate 20 22 Blood Pressure 119/82 Blood Pressure [Right Arm] Blood Pressure Mean 94 Blood Pressure Mean [Right Arm] Pulse Oximetry 97 96 Oxygen Delivery Method Nasal Cannula Nasal Cannula Oxygen Flow Rate 2 2 Sepsis Recent Fever Within 48 Hours Sepsis New/Unexplained Change in Mental Status Sepsis Action Taken by Nursing 07/28/22 14:00 07/28/22 14:00 07/28/22 14:10 Temperature Temperature Source Pulse Rate 83 75 Pulse Rate [Finger] Pulse Rate from SpO2 Sensor 83 76 Respiratory Rate 20 17 Blood Pressure 135/82 Blood Pressure [Right Arm] Blood Pressure Mean 99 Blood Pressure Mean [Right Arm] Pulse Oximetry 98 96 Oxygen Delivery Method Oxygen Flow Rate Sepsis Recent Fever Within 48 Hours Sepsis New/Unexplained Change in Mental Status Sepsis Action Taken by Nursing 07/28/22 14:15 07/28/22 14:15 07/28/22 14:20 Temperature Temperature Source Pulse Rate 78 100 H Pulse Rate [Finger] Pulse Rate from SpO2 Sensor 79 102 H Respiratory Rate 20 23 Blood Pressure 130/84 Blood Pressure [Right Arm] Blood Pressure Mean 99 Blood Pressure Mean [Right Arm] Pulse Oximetry 96 97 Oxygen Delivery Method Oxygen Flow Rate Sepsis Recent Fever Within 48 Hours Sepsis New/Unexplained Change in Mental Status Sepsis Action Taken by Nursing 07/28/22 14:30 07/28/22 14:31 07/28/22 14:31 Temperature Temperature Source Pulse Rate 82 80 Pulse Rate [Finger] Pulse Rate from SpO2 Sensor 77 74 Respiratory Rate 24 21 Blood Pressure 142/71 H Blood Pressure [Right Arm] Blood Pressure Mean 94 Blood Pressure Mean [Right Arm] Pulse Oximetry 96 Oxygen Delivery Method Oxygen Flow Rate Sepsis Recent Fever Within 48 Hours Sepsis New/Unexplained Change in Mental Status Sepsis Action Taken by Nursing 07/28/22 14:40 07/28/22 14:45 07/28/22 14:45 Temperature Temperature Source Pulse Rate 84 84 Pulse Rate [Finger] Pulse Rate from SpO2 Sensor 81 79 Respiratory Rate 21 28 H Blood Pressure 122/74 Blood Pressure [Right Arm] Blood Pressure Mean 90 Blood Pressure Mean [Right Arm] Pulse Oximetry 98 98 Oxygen Delivery Method Oxygen Flow Rate Sepsis Recent Fever Within 48 Hours Sepsis New/Unexplained Change in Mental Status Sepsis Action Taken by Nursing 07/28/22 14:50 07/28/22 15:00 07/28/22 15:00 Temperature Temperature Source Pulse Rate 82 77 Pulse Rate [Finger] Pulse Rate from SpO2 Sensor 82 78 Respiratory Rate 20 23 Blood Pressure 138/81 Blood Pressure [Right Arm] Blood Pressure Mean 100 Blood Pressure Mean [Right Arm] Pulse Oximetry 98 97 Oxygen Delivery Method Oxygen Flow Rate Sepsis Recent Fever Within 48 Hours Sepsis New/Unexplained Change in Mental Status Sepsis Action Taken by Nursing 07/28/22 15:10 07/28/22 15:15 07/28/22 15:15 Temperature Temperature Source Pulse Rate 77 80 Pulse Rate [Finger] Pulse Rate from SpO2 Sensor 78 81 Respiratory Rate 23 27 H Blood Pressure 125/76 Blood Pressure [Right Arm] Blood Pressure Mean 92 Blood Pressure Mean [Right Arm] Pulse Oximetry 96 97 Oxygen Delivery Method Oxygen Flow Rate Sepsis Recent Fever Within 48 Hours Sepsis New/Unexplained Change in Mental Status Sepsis Action Taken by Nursing 07/28/22 15:20 07/28/22 15:30 07/28/22 15:30 Temperature Temperature Source Pulse Rate 78 80 Pulse Rate [Finger] Pulse Rate from SpO2 Sensor 78 80 Respiratory Rate 24 27 H Blood Pressure 119/74 Blood Pressure [Right Arm] Blood Pressure Mean 89 Blood Pressure Mean [Right Arm] Pulse Oximetry 96 96 Oxygen Delivery Method Oxygen Flow Rate Sepsis Recent Fever Within 48 Hours Sepsis New/Unexplained Change in Mental Status Sepsis Action Taken by Nursing 07/28/22 15:40 07/28/22 15:46 07/28/22 15:46 Temperature Temperature Source Pulse Rate 74 83 Pulse Rate [Finger] Pulse Rate from SpO2 Sensor 76 80 Respiratory Rate 22 27 H Blood Pressure 112/86 Blood Pressure [Right Arm] Blood Pressure Mean 94 Blood Pressure Mean [Right Arm] Pulse Oximetry 97 97 Oxygen Delivery Method Oxygen Flow Rate Sepsis Recent Fever Within 48 Hours Sepsis New/Unexplained Change in Mental Status Sepsis Action Taken by Nursing 07/28/22 15:50 07/28/22 16:27 Temperature Temperature Source Pulse Rate 75 81 Pulse Rate [Finger] Pulse Rate from SpO2 Sensor 74 Respiratory Rate 28 H Blood Pressure Blood Pressure [Right Arm] Blood Pressure Mean Blood Pressure Mean [Right Arm] Pulse Oximetry 95 Oxygen Delivery Method Oxygen Flow Rate Sepsis Recent Fever Within 48 Hours Sepsis New/Unexplained Change in Mental Status Sepsis Action Taken by Nursing Laboratory Data 07/28/22 11:35 07/28/22 11:35 Lab Results 07/28/22 07/28/22 07/28/22 Range/Units 11:35 11:35 13:17 WBC 6.01 (4.8-10.8) K/ul RBC 5.71 (4.70-6.10) M/uL Hgb 17.2 (14.0-18.0) g/dl Hct 48.8 (42.0-52.0) % MCV 85.5 (80.0-100.0) fL MCH 30.1 (25.0-34.0) pg MCHC 35.2 (32.0-36.0) g/dL RDW Std Deviation 38.6 (36.4-46.3) fL RDW Coeff of [place] 12.6 (11.5-14.5) % Plt Count 227 (130-400) K/uL MPV 10.4 (9.4-12.4) fL Immature Gran % (Auto) 0.3 % Neut % (Auto) 64.7 % Lymph % (Auto) 25.3 % [place] % (Auto) 5.3 % Eos % (Auto) 3.7 % Baso % (Auto) 0.7 % Neut # (Auto) 3.89 (1.40-6.50) K/uL Lymph # (Auto) 1.52 (1.2-3.4) K/uL [place] # (Auto) 0.32 (0.11-0.59) K/uL Eos # (Auto) 0.22 (0-0.50) K/uL Baso # (Auto) 0.04 (0-0.2) K/uL Immature Gran # (Auto) 0.02 (0.01-0.20) K/uL Sodium 141 (136-145) mmol/L Potassium 4.1 (3.5-5.1) mmol/L Chloride 106 (98-107) mmol/L Carbon Dioxide 29 (21-32) mmol/L Anion Gap 6 (3-11) BUN 11 (6-23) mg/dl Creatinine 0.84 (0.6-1.4) mg/dl Est Cr Clr Drug Dosing 142.4 ml/min Est GFR ( Amer) 144.0 ml/min Est GFR (Non-Af Amer) 124.3 ml/min BUN/Creatinine Ratio 13.1 (10-20) Glucose 86 (70-99(Fasting)) mg/dl Calcium 9.7 (8.6-10.3) mg/dl Total Bilirubin 1.1 H (0.2-1.0) mg/dl AST 14 (13-39) U/L ALT 12 (7-52) U/L Alkaline Phosphatase 74 (34-104) U/L Troponin I High Sens 4.2 (0-20) pg/ml Total Protein 7.5 (6.0-8.3) gm/dl Albumin 4.7 (3.4-5.0) gm/dl Globulin 2.8 (2.5-4.0) gm/dl Albumin/Globulin Ratio 1.7 (0.9-2) Lipase 15 (11-82) U/L SARS-CoV-2, RNA, NAAT NEGATIVE (NEGATIVE) Administered Medications Discontinued Medications Acetaminophen (Acetaminophen 500 Mg Tab) 1,000 mg PO NOW STA Stop: 07/28/22 14:55 Last Admin: 07/28/22 15:20 Dose: 1,000 mg Documented By: SHELLY Sodium Chloride (Nss) 500 mls @ 999 mls/hr IV .Q31M ONE Stop: 07/28/22 12:09 Last Infusion: 07/28/22 14:40 Dose: 0 mls/hr Documented By: Admin: 07/28/22 12:15 Dose: 999 mls/hr Documented By: SHELLY Famotidine 20 mg/ Syringe 5 mls @ 2.5 mls/min IV NOW ONE Stop: 07/28/22 15:46 Last Admin: 07/28/22 16:05 Dose: 2.5 mls/min Documented By: SHELLY Ketorolac Tromethamine (Ketorolac Tromethamine 15 Mg/Ml Vial) 15 mg IV NOW STA Stop: 07/28/22 15:40 Last Admin: 07/28/22 16:04 Dose: 15 mg Documented By: SHELLY Lidocaine HCl (Lidocaine 1% Local 20 Ml Vial) 10 ml INFIL NOW ONE Stop: 07/28/22 13:51 Last Admin: 07/28/22 14:01 Dose: 10 ml Documented By: SHELLY Lidocaine/Epinephrine (Lido/Epinephrine/Sod Bicarb 50 Ml Vial) Confirm Administered Dose 1 ml INFIL .STK-MED ONE Stop: 07/28/22 12:28 Last Admin: 07/28/22 14:02 Dose: Not Given Documented By: SHELLY Imaging Data Radiologist's Impression: Chest X-Ray 07/28/22 10:57 TWO VIEW CHEST CLINICAL HISTORY: Atypical chest pain.. FINDINGS: PA and lateral chest radiographs are compared to study dated 09/08/2021. The cardiomediastinal silhouette is unremarkable. There is a large left pneumothorax with atelectasis at the left lung base and trace ascites or pleural fluid. There is mild stranding within the left pleural space beyond the collapsed lung, and this pneumothorax may be chronic. The trachea is mildly deviated to the right. The right lung appears clear. There is no right-sided pneumothorax. The bony thorax appears intact. IMPRESSION: 1. Large left-sided pneumothorax as above. This may be chronic. 2. There is mild rightward deviation of the trachea. Developing tension is not excluded. Correlate clinically. ACT 112: Negative or not required by law. Electronically signed by: Spencer Stockton M.D. 07/28/2022 11:47 AM Chest X-Ray 07/28/22 12:44 XR chest 1V portable CLINICAL HISTORY: s/p thoravent placement COMPARISON STUDY: Chest radiograph July 28, 2022 at 11:02 AM. FINDINGS: Interval placement of a left pleural catheter is noted. Large left pn eumothorax is again noted. This is similar to slightly decreased from prior exam with apparent slight decrease in mediastinal shift. Left basilar airspace opacity is noted. There is no right pneumothorax. Right lung is clear. IMPRESSION: Interval placement of a left pleural catheter. Persistent large left pneumothorax, stable to minimally decreased since prior exam. ACT 112: Negative or not required by law. Electronically signed by: Tye Santo M.D. 07/28/2022 1:26 PM Discharge Plan Visit Data Chief Complaint: Abnormal Labs/Diagnostic Testing Stated Complaint: SIDE PAIN ED Provider: Antony Ewing Discharge Problem: Pneumothorax, left Forms Stand Alone Forms: [facility] Prescriptions Prescriptions: No Action No Known Home Medications Referrals Referrals: [facility] [Primary Care Provider] -
[2022-07-28] MEDS ORDERED: SODIUM CHLORIDE 0.9% 500 ML IV ONE (11:39)
--- NOTE | 2022-07-28 11:49 | XRay Report ---
TWO VIEW CHEST CLINICAL HISTORY: Atypical chest pain.. FINDINGS: PA and lateral chest radiographs are compared to study dated 09/08/2021. The cardiomediastin al silhouette is unremarkable. There is a large left pneumothorax with atelectasis at the left lung b ase and trace ascites or pleural fluid. There is mild stranding within the left pleural space beyond the collapsed lung, and this pneumothorax may be chronic. The trachea is mildly deviated to the right . The right lung appears clear. There is no right-sided pneumothorax. The bony thorax appears intact. IMPRESSION: 1. Large left-sided pneumothorax as above. This may be chronic. 2. There is mild rightward deviation of the trachea. Developing tension is not excluded. Correlate cl inically. ACT 112: Negative or not required by law. Electronically signed by: Spencer Stockton M.D. 07/28/2022 11:47 AM
[2022-07-28 12:04] LABS: Basophils # (auto) 0.04 K/uL (0-0.2); Basophils % (auto) 0.7 %; Eosinophils # (auto) 0.22 K/uL (0-0.50); Eosinophils % (auto) 3.7 %; Hematocrit (blood only) 48.8 % (42.0-52.0); Hemoglobin 17.2 g/dl (14.0-18.0); Immature Granulocytes # (auto) 0.02 K/uL (0.01-0.20); Immature Granulocytes % (auto) 0.3 %; Lymphocytes # (auto) 1.52 K/uL (1.2-3.4); Lymphocytes % (auto) 25.3 %; Mean Corpuscular Hemoglobin 30.1 pg (25.0-34.0); Mean Corpuscular Hgb Conc 35.2 g/dL (32.0-36.0); Mean Corpuscular Volume 85.5 fL (80.0-100.0); Mean Platelet Volume 10.4 fL (9.4-12.4); Monocytes # (auto) 0.32 K/uL (0.11-0.59); Monocytes % (auto) 5.3 %; Neutrophils # (auto) 3.89 K/uL (1.40-6.50); Neutrophils % (auto) 64.7 %; Platelet Count 227 K/uL (130-400); RDW Coefficient of Variation 12.6 % (11.5-14.5); RDW Standard Deviation 38.6 fL (36.4-46.3); Red Blood Count 5.71 M/uL (4.70-6.10); White Blood Count 6.01 K/ul (4.8-10.8)
[2022-07-28 12:20] LABS: Albumin Globulin Ratio 1.7 (0.9-2); Albumin Level 4.7 gm/dl (3.4-5.0); BUN Creatinine Ratio 13.1 (10-20); Bilirubin,Total 1.1 mg/dl (0.2-1.0); Calcium 9.7 mg/dl (8.6-10.3); Creatinine Clr Calc Pharmacy 142.4 ml/min; Est GFR (Non-African American) 124.3 ml/min; Globulin 2.8 gm/dl (2.5-4.0); Potassium 4.1 mmol/L (3.5-5.1); Total Protein 7.5 gm/dl (6.0-8.3)
[2022-07-28 12:26] LABS: Troponin I High Sensitivity 4.2 pg/ml (0-20)
[2022-07-28] MEDS ORDERED: LIDO/EPINEPHRINE/SOD BICARB 50 ML VIAL INFIL ONE (12:27)
--- NOTE | 2022-07-28 12:55 | History & Physical Report ---
Date of Service July 28, 2022 Assessment & Plan (1) Pneumothorax, left: Plan: -Admit to med/tele History of Present Illness Chief Complaint: Abnormal outpatient CXR results Primary Care Provider: [facility] Baldev Ellison is a 22 year old male with a PMH significant for previous pneumothorax, rectal abscess S/P I&D with General Surgery in 2020 who presented to the [facility] ED today after outpatient CXR showed a left pneumothorax. In the ED the patient's vitals were stable, including being stable on RA. Labs including CBC and CMP were WNL. CXR in the ED was read as a large left-sided pneumothorax, which may be chronic. He was also noted to have mild rightward deviation, developing tension pneumothorax could not be excluded at that time. Per the ED staff, the patient presented to the ED back in August of 2021 for chest pain. A chest xray was obtained at that time. Unfortunately, it appears that the patient had a left pneumothorax at that time as well, but it was missed on the official radiology report. Today the ED staff placed a one-way chest valve and Pulmonology evaluated the patient. Allergies Allergy/AdvReac Type Severity Reaction Status Date / Time No Known Allergies Allergy Unverified 02/08/21 13:33 Home Medications Medication Instructions Recorded Confirmed Type ibuprofen 600 mg tablet 600 mg PO DAILY pain 09/08/21 09/08/21 History Past Med/Surg History Medical History No pertinent family history No pertinent past medical history Surgical History No pertinent past surgical history Social History Smoking Status: Never smoker Hx Alcohol Use: Yes Hx Substance Use: No Preferred Language: Azeri Communication Ability: Effective Sous Chef Required: No Beliefs That Will Affect Care: None Current Living Situation: Alone Feels Safe at Home: Yes Assistive Devices: None Results & Data Results & Data Vital Signs (Past 12 Hours) Vital Signs Temp Pulse Pulse Resp BP BP Pulse Ox 07/28/22 12:20 74 07/28/22 10:53 100 07/28/22 10:52 94 H 18 137/75 97 07/28/22 10:21 36.5 C 100 H 16 119/68 98 O2 Del Method O2 Flow Rate 07/28/22 12:20 07/28/22 10:53 Non-rebreather 15 07/28/22 10:52 Room Air 07/28/22 10:21 Room Air PG Care Time/CCT Total # of Minutes Spent Total Time Spent with Patient: Total time spent is greater than 50% in coordination of care (as documented) at patient's floor/unit and/or counseling patient: Coding Diagnoses Pneumothorax, left J93.9
--- NOTE | 2022-07-28 13:24 | Pulmonary Consultation ---
Date of Consultation July 28, 2022 Assessment & Plan (1) Primary spontaneous pneumothorax: (2) Mediastinal shift: Plan Chest x-ray 07/28/2022 personally reviewed: Portable film, large left-sided pneumothorax with mediastinal shift to the right. No clear lung infiltrate on the right side -- Spontaneous primary pneumothorax with mediastinal shift Second episode Initial episode was August 2021 Thora vent was placed by 07/28/22 in the ER Plan: Chest tube to be connected to waterseal Patient's chest x-ray postprocedure did not show any expansion. It was not connected to waterseal. At bedside I did connected to waterseal and there was bubbling appreciated. I did intermittent suctioning times patient complained of pain. Repeat chest x-ray in the morning Given that this is a second episode of spontaneous pneumothorax on the left side. He will need surgical intervention/VATS. Okay to discontinue oxygen Case discussed with Dr. Morrison Please note the above document was generated using voice recognition software. It may contain grammatical, syntax or spelling errors.Any formal questions or concerns about the content, text or information contained within the body of this dictation should be directly addressed to the provider for clarification. History of Present Illness History of Present Illness 22-year-old male presented to the hospital with complaints of left-sided chest pain and shortness of breath Past medical history: Noncontributory Pulmonary consulted for left-sided pneumothorax Case was discussed with Dr. Pemberton on the phone At the time of examination patient was saturating 98-99% on 2 L nasal cannula. He already had a Thora vent placed in but it was not connected to his heart event. He complained of left-sided chest tightness and pain 4 out of 10 on the left side. Chest x-ray postprocedure did not show reexpansion of the lung. Patient was doing heavy lifting and exercise when he got sudden left-sided chest pain along with shortness of breath. He had similar instance back in August 2021 for which she presented to the ER, chest x-ray at that time did not show pneumothorax but it was not read as pneumothorax and he was discharged home. Denies any history of trauma. There is no family history of lung problems No history of pneumothoraces before August 2021 Patient does have childhood history of asthma. Is not on any inhalers Social history: Lifetime non-smoker, no vaping Allergies Allergy/AdvReac Type Severity Reaction Status Date / Time pollen extracts Allergy Intermediate Swelling Unverified 07/28/22 16:15 of the Eye Home Medications Medication Instructions Recorded Confirmed Type No Known Home Medications 07/28/22 07/28/22 History Patient History Medical History No pertinent family history No pertinent past medical history Perirectal abscess Surgical History No pertinent past surgical history Social History Smoking Status: Never smoker Hx Alcohol Use: Yes Hx Substance Use: No Preferred Language: Maltese Communication Ability: Effective 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 Beliefs That Will Affect Care: None Current Living Situation: Alone Current Living Situation Comment: lives with friends Feels Safe at Home: Yes Safety Concerns: Feels Safe At This Time Assistive Devices: None Review of Systems Review of Systems: All systems reviewed & are unremarkable except as noted in HPI & below Physical Exam Physical Exam: Constitutional: No acute distress HEENT: EOMI, PERRLA, no subcu emphysema Respiratory system: Decreased air entry on the left side, no wheeze, no rhonchi, no crackles CVS: S1-S2 positive, no murmurs or gallops Abdomen: Soft, nontender, nondistended, positive bowel sounds x4 Extremities: +2 pulses bilaterally radialis/ dorsalis pedis, no cyanosis, no nania ma Neuro: Awake alert oriented x3 Psych: Normal mood and affect G/U: No Luther Skin: no rashes, warm and dry Lymphatic: no cervical or axillary lymphadenopathy Results & Data Results & Data Vital Signs (Past 12 Hours) Vital Signs Temp Pulse Pulse Resp BP BP Pulse Ox 07/28/22 13:20 89 20 100 07/28/22 13:15 128/84 07/28/22 13:15 90 19 99 07/28/22 13:10 79 19 100 07/28/22 13:00 96 H 15 100 07/28/22 13:00 130/85 07/28/22 12:50 86 12 98 07/28/22 12:45 125/73 07/28/22 12:45 98 H 22 100 07/28/22 12:42 129/79 05/05 12:42 93 H 27 H 100 05/05 12:40 96 H 18 100 0505 12:31 87 19 97 05/05 12:31 128/77 0505 12:30 91 H 17 100 05/05 12:30 117/77 0505 12:29 123/80 05/05 12:29 86 18 0505 12:20 84 25 H 99 0505 12:11 90 16 0505 11:50 92 H 20 98 0505 11:40 69 13 99 05/05 11:30 83 14 100 05/05 11:30 129/87 0505 11:29 96 05/05 11:28 120/78 05/05 11:19 85 21 95 05/05 11:10 89 19 96 05/05 11:01 92 H 15 99 0505 11:01 126/79 0505 11:00 91 H 23 99 0505 10:53 104 H 16 100 05/05 12:20 74 05/05 10:53 100 0505 10:52 94 H 18 137/75 97 0505 10:21 36.5 C 100 H 16 119/68 98 O2 Del Method O2 Flow Rate 07/28/22 13:20 0505 13:15 0505 13:15 0505 13:10 0505 13:00 0505 13:00 0505 12:50 0505 12:45 0505 12:45 0505 12:42 0505 12:42 0505 12:40 0505 12:31 0505 12:31 0505 12:30 0505 12:30 0505 12:29 0505 12:29 0505 12:20 0505 12:11 0505 11:50 0505 11:40 0505 11:30 07/28/22 11:30 05/05/23 11:29 07/28/22 11:28 07/28/22 11:19 07/28/22 11:10 07/28/22 11:01 07/28/22 11:01 07/28/22 11:00 07/28/22 10:53 07/28/22 12:20 07/28/22 10:53 Non-rebreather 15 07/28/22 10:52 Room Air 07/28/22 10:21 Room Air Laboratory Results 07/28/22 11:35 07/28/22 11:35 PG Care Time/CCT Total # of Minutes Spent Total Time Spent with Patient: Total time spent is greater than 50% in coordination of care (as documented) at patient's floor/unit and/or counseling patient: Coding Level of Care Code 76685 INT INP/OBS CARE 3/75MIN Diagnoses Primary spontaneous pneumothorax J93.11 Mediastinal shift R93.89
--- NOTE | 2022-07-28 13:27 | XRay Report ---
XR chest 1V portable CLINICAL HISTORY: s/p thoravent placement COMPARISON STUDY: Chest radiograph July 28, 2022 at 11:02 AM. FINDINGS: Interval placement of a left pleural catheter is noted. Large left pneumothorax is again no hoang. This is similar to slightly decreased from prior exam with apparent slight decrease in mediastin al shift. Left basilar airspace opacity is noted. There is no right pneumothorax. Right lung is clear . IMPRESSION: Interval placement of a left pleural catheter. Persistent large left pneumothorax, stabl e to minimally decreased since prior exam. ACT 112: Negative or not required by law. Electronically signed by: Tye Santo M.D. 07/28/2022 1:26 PM
[2022-07-28] MEDS ORDERED: LIDOCAINE 1% LOCAL 20 ML VIAL INFIL ONE (13:50)
--- NOTE | 2022-07-28 14:37 | History & Physical Report ---
Date of Service July 28, 2022 Assessment & Plan (1) Pneumothorax, left: Plan: Thora-vent chest tube inserted by ER provider Pain management with acetaminophen first line, Toradol second line Appreciate pulmonology recommendations Plan VTE Prophyalxis - low risk Diet - regular Disposition - observation to med/tele Admission and Anticipated Discharge Date Admission Date: July 28, 2022 History of Present Illness Chief Complaint: Shortness of breath Primary Care Provider: [facility] Baldev Ellison is a 22 year old male with no significant past medical history who presents to the ER with 10 day history of left sided chest pressure and shortness of breath. Associated dry cough and generalized myalgias over this time. No fever or chills. He denies any pain prior to chest tube insertion. Current pain severity around chest tube site /10. In the ER CXR showed a large left sided pneumothorax and thora-vent chest tube was inserted by the ER provider. Of note he was seen in August last year for the same symptoms. On review of CXR at that time which was originally reported as no acute cardiopulmonary disease, he actually had a left sided pneumothorax on that occassion. Allergies Allergy/AdvReac Type Severity Reaction Status Date / Time pollen extracts Allergy Intermediate Swelling Unverified 07/28/22 16:15 of the Eye Home Medications Medication Instructions Recorded Confirmed Type No Known Home Medications 07/28/22 07/28/22 History Past Med/Surg History Medical History No pertinent family history No pertinent past medical history Perirectal abscess Surgical History No pertinent past surgical history Social History Smoking Status: Never smoker Hx Alcohol Use: Yes Hx Substance Use: No Preferred Language: Thai Communication Ability: Effective Clerk Travel Reservations Required: No Beliefs That Will Affect Care: None Current Living Situation: Alone Current Living Situation Comment: lives with friends Feels Safe at Home: Yes Safety Concerns: Feels Safe At This Time Assistive Devices: None Review of Systems Review of Systems: All systems reviewed & are unremarkable except as noted in HPI & below Physical Exam Constitutional: WD/WN, vitals as above Eyes: + anicteric sclerae; normal pupil size Respiratory: normal respiratory effort; no respiratory distress Auscultation: + diminished lung sounds (left sided); no crackles, no rales, no rhonchi and no wheezes chest tube in place Cardiovascular: RRR, no murmur, no edema Gastrointestinal (Abdomen): normal bowel sounds, soft, nontender, no hepatosplenomegaly Skin: no rashes, warm and dry Psychiatric: A+Ox3, euthymic affect Results & Data Results & Data Vital Signs (Past 12 Hours) Vital Signs Temp Pulse Pulse Resp BP BP Pulse Ox 07/28/22 13:50 84 22 96 07/28/22 13:46 119/82 07/28/22 13:46 79 20 97 07/28/22 13:40 80 22 97 07/28/22 13:30 86 20 100 07/28/22 13:30 118/84 07/28/22 13:20 89 20 100 07/28/22 13:15 128/84 07/28/22 13:15 90 19 99 07/28/22 13:10 79 19 100 07/28/22 13:00 96 H 15 100 07/28/22 13:00 130/85 07/28/22 12:50 86 12 98 07/28/22 12:45 125/73 07/28/22 12:45 98 H 22 100 07/28/22 12:42 129/79 07/28/22 12:42 93 H 27 H 100 07/28/22 12:40 96 H 18 100 07/28/22 12:31 87 19 97 07/28/22 12:31 128/77 07/28/22 12:30 91 H 17 100 07/28/22 12:30 117/77 07/28/22 12:29 123/80 07/28/22 12:29 86 18 07/28/22 12:20 84 25 H 99 07/28/22 12:11 90 16 07/28/22 11:50 92 H 20 98 07/28/22 11:40 69 13 99 07/28/22 11:30 83 14 100 07/28/22 11:30 129/87 07/28/22 11:29 96 07/28/22 11:28 120/78 07/28/22 11:19 85 21 95 07/28/22 11:10 89 19 96 07/28/22 11:01 92 H 15 99 07/28/22 11:01 126/79 07/28/22 11:00 91 H 23 99 07/28/22 10:53 104 H 16 100 07/28/22 12:20 74 07/28/22 10:53 100 07/28/22 10:52 94 H 18 137/75 97 07/28/22 10:21 36.5 C 100 H 16 119/68 98 O2 Del Method O2 Flow Rate 07/28/22 13:50 Nasal Cannula 2 07/28/22 13:46 07/28/22 13:46 Nasal Cannula 2 07/28/22 13:40 Nasal Cannula 2 07/28/22 13:30 Nasal Cannula 2 07/28/22 13:30 07/28/22 13:20 07/28/22 13:15 07/28/22 13:15 07/28/22 13:10 07/28/22 13:00 07/28/22 13:00 07/28/22 12:50 07/28/22 12:45 07/28/22 12:45 07/28/22 12:42 07/28/22 12:42 07/28/22 12:40 07/28/22 12:31 07/28/22 12:31 07/28/22 12:30 07/28/22 12:30 07/28/22 12:29 07/28/22 12:29 07/28/22 12:20 07/28/22 12:11 07/28/22 11:50 07/28/22 11:40 07/28/22 11:30 07/28/22 11:30 07/28/22 11:29 07/28/22 11:28 07/28/22 11:19 07/28/22 11:10 07/28/22 11:01 07/28/22 11:01 07/28/22 11:00 07/28/22 10:53 07/28/22 12:20 07/28/22 10:53 Non-rebreather 15 07/28/22 10:52 Room Air 07/28/22 10:21 Room Air Laboratory Results Abnormal lab results 07/28/22 Range/Units 11:35 Total Bilirubin 1.1 H (0.2-1.0) mg/dl Diagnostic Findings TWO VIEW CHEST CLINICAL HISTORY: Atypical chest pain.. FINDINGS: PA and lateral chest radiographs are compared to study dated 09/08/2021. The cardiomediastinal silhouette is unremarkable. There is a large left pneumothorax with atelectasis at the left lung base and trace ascites or pleural fluid. There is mild stranding within the left pleural space beyond the collapsed lung, and this pneumothorax may be chronic. The trachea is mildly deviated to the right. The right lung appears clear. There is no right-sided pneumothorax. The bony thorax appears intact. IMPRESSION: 1. Large left-sided pneumothorax as above. This may be chronic. 2. There is mild rightward deviation of the trachea. Developing tension is not excluded. Correlate clinically. Medications Administered ER Medications Given: NSS 500ml bolus ECG Rate (beats per minute): 79 Rhythm: normal sinus Findings: no acute ischemic change Comparison ECG Date: from (September 08, 2021) Change: no significant change Code Status & VTE Plan Code Status Full VTE Prophylaxis Plan VTE Prophylaxis will be ordered: No Reason for no VTE drug order: Treatment not indicated PG Care Time/CCT Total # of Minutes Spent Total Time Spent with Patient: Total time spent is greater than 50% in coordination of care (as documented) at patient's floor/unit and/or counseling patient: Coding Level of Care Code 92726 INT INP/OBS CARE 1/40MIN Diagnoses Pneumothorax, left J93.9
[2022-07-28] MEDS ORDERED: ACETAMINOPHEN 500 MG TAB PO STA (14:54)
[2022-07-28] MEDS ORDERED: KETOROLAC TROMETHAMINE 15 MG/ML VIAL IV STA (15:39)
[2022-07-28] MEDS ORDERED: FAMOTIDINE 20 MG in SYRINGE 3 ML IV ONE (15:45)
[2022-07-28] MEDS ORDERED: ACETAMINOPHEN 325 MG TAB PO PRN (18:20)
[2022-07-28] MEDS ORDERED: KETOROLAC TROMETHAMINE 15 MG/ML VIAL IV PRN (18:51)
--- NOTE | 2022-07-28 22:31 | Electrocardiogram Report ---
Test Reason : Blood Pressure : / mmHG Vent. Rate : 079 BPM Atrial Rate : 079 BPM P-R Int : 160 ms QRS Dur : 090 ms QT Int : 352 ms P-R-T Axes : 075 079 049 degrees QTc Int : 403 ms Poor data quality, interpretation may be adversely affected Normal sinus rhythm Normal ECG When compared with ECG of 08-SEP-2021 11:43, No significant change was found Confirmed by Jose Huerta ([id number]) on 07/28/2022 10:30:55 PM Referred By: REFERRED SELF Confirmed By:Jose Huerta
--- NOTE | 2022-07-29 09:18 | Pulmonology Progress Note ---
Date of Service July 29, 2022 Assessment & Plan (1) Primary spontaneous pneumothorax: (2) Mediastinal shift: Plan Chest x-ray 07/28/2022 personally reviewed: Portable film, large left-sided pneumothorax with mediastinal shift to the right. No clear lung infiltrate on the right side -- Spontaneous primary pneumothorax with mediastinal shift Second episode Initial episode was August 2021 Thora vent was placed by 07/28/22 in the ER No subcu emphysema. Patient seems to have possible left apical bleb appreciated on the chest x-ray. Also CT chest would be the best modality. As the patient is going to be transferred then I would not do a CT chest here and rather at the place where he is getting transferred Plan: Chest x-ray from today shows improvement in the left-sided pneumothorax compared to before, small left-sided pneumothorax still persist I will connect the chest tube to -20 suction Given that this is a second episode of spontaneous pneumothorax on the left side. He will need surgical intervention/VATS. Case discussed with Dr. Carter and RN at bedside Please note the above document was generated using voice recognition software. It may contain grammatical, syntax or spelling errors.Any formal questions or concerns about the content, text or information contained within the body of this dictation should be directly addressed to the provider for clarification. Admission and Anticipated Discharge Date Admission Date: July 28, 2022 Subjective Patient seen and examined at bedside. No acute distress Does complain of discomfort at the site of the chest tube Shortness of breath is improved No nausea or vomiting No headache Fair appetite Has been afebrile Review of Systems Review of Systems: All systems reviewed & are unremarkable except as noted in Subjective Physical Exam Physical Exam: Constitutional: No acute distress HEENT: EOMI, PERRLA, no subcu emphysema Respiratory system: Good air entry bilaterally, no wheeze, no rhonchi, no crackles CVS: S1-S2 positive, no murmurs or gallops Abdomen: Soft, nontender, nondistended, positive bowel sounds x4 Extremities: +2 pulses bilaterally radialis/ dorsalis pedis, no cyanosis, no edema Neuro: Awake alert oriented x3 Psych: Normal mood and affect G/U: No Luther Skin: no rashes, warm and dry Lymphatic: no cervical or axillary lymphadenopathy Results & Data Results & Data Vital Signs (Past 12 Hours) Vital Signs Temp Pulse Pulse Resp BP Pulse Ox O2 Del Method 05/06/23 07:40 36.7 C 64 16 110/76 97 Room Air 07/29/22 07:37 63 07/28/22 22:00 82 07/29/22 02:35 36.3 C L 70 16 113/70 97 Room Air 07/28/22 22:55 36.9 C 77 18 122/74 95 Room Air Laboratory Results 07/28/22 11:35 07/28/22 11:35 PG Care Time/CCT Total # of Minutes Spent Total Time Spent with Patient: Total time spent is greater than 50% in coordination of care (as documented) at patient's floor/unit and/or counseling patient: Coding Level of Care Code 11754 SUB INP/OBS CARE 3/50MIN Diagnoses Primary spontaneous pneumothorax J93.11 Mediastinal shift R93.89
--- NOTE | 2022-07-29 10:25 | XRay Report ---
XR chest 1V portable HISTORY: Left-sided pneumothorax. Follow-up. COMPARISON: Chest 07/28/2022. FINDINGS: A left lateral pleural catheter is noted. Interval decrease in size in the now small left p neumothorax. This demonstrates a maximum pleural gap of 2 cm. There is a large left apical bleb measu ring 4.9 cm. Left basilar density favors atelectasis. The heart is normal in size. No mediastinal samaria ft. The right lung is clear. No acute fractures identified. IMPRESSION: 1. A left lateral pleural catheter is again noted with decrease in size in the now small left pneumot horax. 2. A 4.9 cm left apical bleb is noted. ACT 112: Negative or not required by law. Electronically signed by: Derrell Horner M.D. 07/29/2022 10:23 AM
--- NOTE | 2022-07-29 13:05 | Discharge Summary ---
Date of Service July 29, 2022 Admission HPI Per Admitting Provider Baldev Ellison is a 22 year old male with no significant past medical history who presents to the ER with 10 day history of left sided chest pressure and shortness of breath. Associated dry cough and generalized myalgias over this time. No fever or chills. He denies any pain prior to chest tube insertion. Current pain severity around chest tube site 4/10. In the ER CXR showed a large left sided pneumothorax and thora-vent chest tube was inserted by the ER provider. Of note he was seen in August last year for the same symptoms. On review of CXR at that time which was originally reported as no acute cardiopulmonary disease, he actually had a left sided pneumothorax on that occassion. Admission Exam Per Admitting Provider Constitutional: WD/WN, vitals as above Eyes: + anicteric sclerae; normal pupil size Respiratory: normal respiratory effort; no respiratory distress Auscultation: + diminished lung sounds (left sided); no crackles, no rales, no rhonchi and no wheezes chest tube in place Cardiovascular: RRR, no murmur, no edema Gastrointestinal (Abdomen): normal bowel sounds, soft, nontender, no hepatosplenomegaly Skin: no rashes, warm and dry Psychiatric: A+Ox3, euthymic affect Principal Diagnosis Spontaneous pneumothorax Discharge Exam Constitutional WD/WN, vitals as above no acute distress Eyes + anicteric sclerae ENMT external ear and nose normal, oropharynx normal Neck trachea midline, no thyromegaly Respiratory normal respiratory effort, lungs clear to auscultation + chest tube in place on left Cardiovascular RRR, no murmur, no edema Heart Sounds: normal S1 and normal S2 Musculoskeletal no cyanosis or clubbing, extremities motor strength 5/5 Skin no rashes, warm and dry Neurologic moves all extremities Psychiatric A+Ox3, euthymic affect Discharge Data Allergies Allergy/AdvReac Type Severity Reaction Status Date / Time pollen extracts Allergy Intermediate Swelling Unverified 07/28/22 16:15 of the Eye Consultations 07/28/22 13:38 Consult Pulmonology Routine ED Decision to Admit Stat Hospital Course (1) Primary spontaneous pneumothorax: Baldev is an otherwise healthy 22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 Spontaneous primary pneumothorax with mediastinal shift - Chest x-ray 07/28/2022: Portable film, large left-sided pneumothorax with mediastinal shift to the right. No clear lung infiltrate on the right side - Second episode; Initial episode was August 2021 (no chest tube was placed with first incidence) - Thora vent was placed by 07/28/22 in the ER. No subcu emphysema. - Patient seems to have possible left apical bleb appreciated on the chest x- ray.Chest CT was not done here due to his anticipated hospital transfer - Chest x-ray from today (07/29/22) shows improvement in the left-sided pneumothorax compared to admission, small left-sided pneumothorax still persist - chest tube connected to -20 suction - Given that this is a second episode of spontaneous pneumothorax on the left side. He will need surgical intervention/VATS. - He was accepted to [facility] by Dr. Patel for CT surgery. He is stable for ground transport while on water seal Total Time Total Time Spent Total Time Spent (In Minutes): 35 minutes Total Time Includes: Examination of the Patient, Discharge Planning and Communication With Other Providers Discharge Plan Discharge Items Patient Disposition: Transfer Acute Care Hospital Reason For Visit: PNEUMOTHORAX Discharge Diagnosis: Spontaneous primary pneumothorax Activity: Resume your previous activity Non-emergency contact: Primary Care Provider Call non-emergency contact if: your symptoms worsen Follow-up/Referrals: [facility] [Primary Care Provider] - Diet: Regular Addtl Attending Provider Instructions: You were hospitalized at [facility] for chest pain. The cause was found to be due to air in the space between the lung an the chest wall. This is called a pneumothorax. The skip operator was consulted and directed your care. A chest tube was placed and you were connected to suction. Fortunately, your lung nearly totally re-inflated in one day. Since this was your second occurrence, you likely need to have surgery on the left lung. We do not offer this procedure here at [facility], so you were transferred to [facility] for further management. Pending Studies at Discharge: No Stand-Alone Forms: My [facility] Skilled Items Patient informed of condition?: Yes DNR: No Discharge Level of Care: Other Communicable Disease: No Discharge Prognosis: Stable Lines: Peripheral IV Urinary Catheter: No Medications and DC Order Prescriptions: No Action No Known Home Medications Discharge Orders: Discharge Order (Routine); Ordered 07/29/22 Ordered By: Francisca Carter Admission Data Admit Date/Time: 07/28/22 14:10 Attending Provider: Francisca Carter Admit Provider: Ze Morrison Primary Care Provider: [facility] Other Providers: Ze Morrison ; Heaven Flores Coding Level of Care Code 41627 INP/OBS DISCH >30 MIN Diagnoses Primary spontaneous pneumothorax J93.11
== END 2022-07-29 15:00 | disposition short-term general hospital (02) ==
LOC: 2N 10:19 → ED 10:19 → SUATTDRO 14:10 → 2N 17:50
DX: J93.11 Primary spontaneous pneumothorax